=== PATIENT | female | born 1945 | race Caucasian/White ===

== ENCOUNTER → 2017-03-07 | Outpatient (CLI) | payer MEDICARE ==
[~2017-03-07] MED LIST: ALPR-557 PO; ASP325T PO; ASP81CT; ASP81CT PO; BIMA2.5D4 OU; CALC-72; CITA20TA4 PO; CLN.1T PO; CLON1PAT14; CTLP20T; EZET10TA5 PO; FENO135C; FERR-57 PO; GEMF600T3 PO; GLUC10002; LEVO75TA6 PO; LISI20TA; LOSA100T7 PO; LVT.05T; MULT-608 PO; MULT1TAB5 PO; NIA500ERT; NIACOR; OMEG1CAP51; OXYC1TAB PO; losartan; roxicet; xanax
--- NOTE | 2017-03-07 18:22 | Diagnostic Imaging Report ---
Bilateral screening mammogram 2D views with tomosynthesis The current study was also evaluated with a Computer Aided Detection (CAD) system. INDICATION: Screening. No current complaints stated on the questionnaire. COMPARISON: 10/13/2015. FINDINGS: The breasts are composed of scattered fibroglandular densities. Scattered benign-appearing calcifications are seen. Allowing for technique and positional differences, no suspicious change is seen. IMPRESSION: No significant change. ACR BI-RADS Category 2: Benign findings. Result letter will be mailed to the patient. Note: At least 10% of breast cancer is not imaged by mammography. Dictated by: Dictated on workstation # [id number]
== END ==
LOC: RAD 08:49
PROVIDERS: ATTEND Family Medicine
DX: Z12.31 Encounter for screening mammogram for malignant neoplasm of breast (principal)
CPT/HCPCS: 77067

== ENCOUNTER → 2018-03-08 | Outpatient (CLI) | payer MEDICARE | LOC: CARD 10:42 | PROVIDERS: ATTEND Nurse Practitioner Family | DX: I35.0 Nonrheumatic aortic (valve) stenosis (principal); I10 Essential (primary) hypertension; I77.89 Other specified disorders of arteries and arterioles; E78.5 Hyperlipidemia, unspecified | CPT/HCPCS: 93306 ==

== ENCOUNTER 2020-05-17 06:00 | Outpatient (RCR) | payer MEDICARE ==
[~2020-05-17] VITALS: Ht 167.6 cm; Wt 123.9 kg
[~2020-05-17 06:00] MED LIST changes: +ASPI-808 PO; +ASPI-999 PO; +CALC-140 PO; +CITA20TA12 PO; +FERR325T18 PO; +GEMF600T8 PO; +LOSA50TA63 PO; +MULT-1029 PO; +NF-VITD400 PO; +OMG1KC PO; +OXYC-464 PO; +VIT1CAPS5 PO
== END 2020-05-17 14:08 | disposition home or self-care (01) ==
LOC: PREOP 06:00
PROVIDERS: ATTEND Orthopaedic Surgery
DX: Z01.812 Encounter for preprocedural laboratory examination (principal); M20.012 Mallet finger of left finger(s); Z20.822 Contact with and (suspected) exposure to COVID-19
CPT/HCPCS: 87635

== ENCOUNTER 2020-05-19 06:04 | Day surgery (SDC) | payer MEDICARE ==
--- NOTE | 2020-05-12 03:05 | HISTORY AND PHYSICAL ---
DATE OF SERVICE: This will be for outpatient surgery on 05/19/2020 for left long finger pinning. HISTORY OF PRESENT ILLNESS: The patient is a 74-year-old right-hand dominant female who fell approximately 2 weeks ago, she injured her left long finger. She was noted to have a mallet finger of the left long finger. She has tried splinting, but reports she is unable to tolerate this. Because of this, she has elected to proceed with pinning. REVIEW OF SYSTEMS: No chest pain, no shortness of breath, no dysuria. PAST MEDICAL HISTORY: Allergic rhinitis, anxiety disorder, constipation, depression, diabetes, hyperlipidemia, hypertension, hypothyroidism, insomnia and skin cancer. PAST SURGICAL HISTORY: Cataracts, tonsillectomy, skin cancer removal. FAMILY HISTORY: Significant for COPD, ischemic heart disease. PRIMARY CARE PROVIDER: Dr. Allen. MEDICATIONS: Nystatin, citalopram, aspirin, losartan, clonidine, vitamin D, gemfibrozil, Synthroid, Percocet. ALLERGIES: CODEINE, CEPHALEXIN, SIMVASTATIN, NIACIN, GUAIFENESIN. SOCIAL HISTORY: The patient denies alcohol, tobacco use. RADIOGRAPHS: Reveal no acute osseous abnormalities of the long finger. PHYSICAL EXAMINATION: GENERAL: The patient is well-developed, well-nourished, in no acute distress. HEENT: Normocephalic, atraumatic. Pupils are equal, round and reactive to light. Oropharynx is clear. NECK: Supple, no lymphadenopathy. LUNGS: Clear to auscultation bilaterally. HEART: Regular rate and rhythm. ABDOMEN: Soft, nontender, nondistended. EXTREMITIES: The left long finger demonstrates a mallet type deformity. She is unable to actively extend DIP. She has flexion of DIP, MCP and PIP joint with no angulation or malrotation noted. She is tender over the dorsal aspect of her left long finger DIP joint. IMPRESSION: Left long finger mallet injury. PLAN: Left long finger DIP joint pinning. We discussed risks, benefits, options, ramifications and recovery. She understands and wishes to proceed. Job ID: [id number] DocumentID: [id number] Dictated Date: 05/10/2020 15:54:20 Guard Range Date: 05/10/2020 18:20:33 Dictated By: TOREY CAMARENA MD
[2020-05-19] VITALS (10 sets, daily range): BP systolic 108–177; BP diastolic 53–95
[~2020-05-19] VITALS: Ht 167.6 cm; Wt 123.9 kg
[~2020-05-19 06:04] MED LIST changes: -GEMF600T8 PO; +GEMF600T88 PO
[2020-05-19] MEDS ORDERED: LACTATED RINGERS 1,000 ML IV PRN (06:15)
[2020-05-19] MEDS ORDERED: ONDANSETRON 4 MG/2 ML (SDV) Z0FRAN ONE (07:28)
[2020-05-19] MEDS ORDERED: LIDOCAINE PF 2% 5 ML (XYLOCAINE) VIAL ONE (07:28)
[2020-05-19] MEDS ORDERED: proPOfol 200 MG/20 ML (DIPRIVAN) VIAL IV ONE (07:28)
[2020-05-19] MEDS ORDERED: fentaNYL INJECTION 100 MCG/2 ML AMP ONE (07:28)
[2020-05-19] MEDS ORDERED: BUPIVACAINE 0.5% 30 ML (SENSORCAINE) VIAL ONE (07:28)
[2020-05-19] MEDS ORDERED: SEVOFLURANE (ULTANE) 15 ML INHAL SOLN ONE (07:33)
--- NOTE | 2020-05-19 07:33 | Progress Note-Pre Operative ---
Pre-Operative Progress Note H&P Reviewed The H&P was reviewed, patient examined and no changes noted. Date Seen by Provider: May 19, 2020 Time Seen by Provider: 07:20 Date H&P Reviewed: May 19, 2020 Time H&P Reviewed: 07:11 Pre-Operative Diagnosis: left long mallet finger TOREY CAMARENA MD May 19, 2020 07:33
--- NOTE | 2020-05-19 07:34 | Progress Note-Post Operative ---
Post-Operative Progess Note Surgeon (s)/Ticket Printer (s) Surgeon TOREY CAMARENA MD Ticket Printer: Mateus Johnson Pre-Operative Diagnosis left long mallet finger Post-Operative Diagnosis left long mallet finger Procedure & Operative Findings Date of Procedure 05/19/20 Procedure Performed/Findings percutaneous pin fixation of the left long finger DIP joint Anesthesia Type GETA Estimated Blood Loss Estimated blood loss (mL): minimal Specimens/Packing Specimens Removed none Packing: none TOREY CAMARENA MD May 19, 2020 07:34
[2020-05-19] MEDS ORDERED: CLINDAMYCIN 600 MG/4ML (CLEOCIN) VIAL ONE (07:54)
[2020-05-19] MEDS ORDERED: TRM50T PO (09:13)
--- NOTE | 2020-05-19 10:55 | Anesthesia-General Post-Op ---
General Patient Condition Mental Status/LOC: Same as Preop Cardiovascular: Satisfactory Nausea/Vomiting: Absent Respiratory: Satisfactory Pain: Controlled Complications: Absent Post Op Complications Complications None Follow Up Care/Instructions Patient Instructions None needed. Anesthesia/Patient Condition Patient Condition Patient is doing well, no complaints, stable vital signs, no apparent adverse anesthesia problems. No complications reported per nursing. YANG MORELAND CRNA May 19, 2020 10:55
--- NOTE | 2020-05-19 12:35 | Diagnostic Imaging Report ---
INDICATION: Fluoroscopy during percutaneous pinning of left finger. DETAILS OF THE PROCEDURE: Fluoroscopy was provided in the OR. 14 seconds of fluoroscopic time was utilized. Two images were obtained demonstrating a K wire transfixing the distal interphalangeal joint of the 3rd finger. IMPRESSION: Fluoroscopy during left 3rd finger pinning. Dictated by: Dictated on workstation # [id number]
--- NOTE | 2020-05-19 13:26 | OPERATIVE REPORT ---
DATE OF SERVICE: 05/19/2020 PREOPERATIVE DIAGNOSIS: Left long finger mallet finger. POSTOPERATIVE DIAGNOSIS: Left long finger mallet finger. PROCEDURE: Percutaneous pin fixation of left long finger DIP joint. SURGEON: Ankit Camarena MD TELEMETRY RN: Mateus Johnson, who assisted throughout the procedure and applied the dressing. ANESTHESIA: General endotracheal by Leia Gayle CRNA. TOURNIQUET TIME: Not applicable. ESTIMATED BLOOD LOSS: Minimal. DRAINS: None. COMPLICATIONS: None. POSTOPERATIVE PLAN: Pin fixation for 4 to 6 weeks. The patient was transferred to the recovery room awake and stable condition. STATEMENT OF MEDICAL NECESSITY: The patient is a 74-year-old female who sustained an injury resulting in a soft tissue mallet finger of the left long finger DIP joint. She tried splinting, but was unable to tolerate this. The patient was counseled regarding treatment options and elected to proceed with percutaneous pin fixation. She understood that this would not return her joint to the preinjury alignment, but should aid in extensor tendon healing. DESCRIPTION OF PROCEDURE: After risks and benefits of procedure were discussed and questions were answered, an informed consent was signed and placed on chart. The operative site was confirmed in the preoperative holding area initialed by the surgeon. The patient was then transferred to the operating room and after adequate levels of general endotracheal anesthetic were obtained, a timeout was called, confirming the operative site. The left upper extremity was prepped and draped in the usual sterile fashion. Under fluoroscopic guidance, a 0.45 K-wire was passed from distal to proximal across the DIP joint with a joint held in slight hyperextension. This was found to be in excellent position on fluoroscopic visualization. The joint was stable to movement. The pin was cut and the ball was applied. Soft dressing was applied. The patient was transferred to the recovery room awake and in stable condition. Job ID: [id number] DocumentID: [id number] Dictated Date: 05/19/2020 08:22:55 Extractor Puller Date: 05/19/2020 13:25:42 Dictated By: ANKIT CAMARENA MD
== END 2020-05-19 10:10 | disposition home or self-care (01) ==
LOC: SDC 06:04
PROVIDERS: ATTEND Orthopaedic Surgery
DX: M20.012 Mallet finger of left finger(s) (principal); F41.9 Anxiety disorder, unspecified; F32.9 Major depressive disorder, single episode, unspecified; M19.90 Unspecified osteoarthritis, unspecified site; D64.9 Anemia, unspecified; E11.9 Type 2 diabetes mellitus without complications; E78.5 Hyperlipidemia, unspecified; E03.9 Hypothyroidism, unspecified; G47.00 Insomnia, unspecified; I10 Essential (primary) hypertension; J30.9 Allergic rhinitis, unspecified; Z79.899 Other long term (current) drug therapy; Z88.5 Allergy status to narcotic agent; Z88.8 Allergy status to other drugs, medicaments and biological substances
CPT/HCPCS: 26756; 76000; 87081; C1713

== ENCOUNTER → 2021-02-22 | Outpatient (CLI) | payer MEDICARE ==
[~2021-02-22] MED LIST changes: -OXYC-464 PO; +OXYC1TAB15 PO; +TRM50T PO
== END ==
LOC: CARD 10:30
PROVIDERS: ATTEND Internal Medicine Cardiovascular Disease
DX: I08.0 Rheumatic disorders of both mitral and aortic valves (principal)
CPT/HCPCS: 93306

== ENCOUNTER 2021-03-02 10:28 | Outpatient (CLI) | payer MEDICARE ==
[~2021-03-02] VITALS: Ht 167.7 cm; Wt 120.4 kg
[2021-03-02 10:42] VITALS: BP 144/63
[2021-03-02] MEDS ORDERED: diphenhydrAMINE 50 MG/ML INJ (BENADRYL) IV PRN (11:00)
[2021-03-02] MEDS ORDERED: EPINEPHrine INJECTION 1 MG/ML AMP IM PRN (11:00)
[2021-03-02] MEDS ORDERED: ONDANSETRON 4 MG/2 ML (SDV) Z0FRAN IV PRN (11:00)
[2021-03-02] MEDS ORDERED: ACETAMINOPHEN 500 MG TAB (TYLENOL) PO PRN (11:00)
[2021-03-02] MEDS ORDERED: CASIRIVIMAB/IMDEVIMAB 1,200 MG in NS (IVPB) 250 ML IV ONE (11:00)
[2021-03-02 11:53] VITALS: BP 132/36
== END 2021-03-02 12:49 | disposition home or self-care (01) ==
LOC: INFUSION 10:28
PROVIDERS: ATTEND Nurse Practitioner Family
DX: U07.1 COVID-19 (principal)

== ENCOUNTER 2021-11-17 16:45 | Emergency (ER) | payer MEDICARE ==
[~2021-11-17] VITALS: Ht 167.7 cm; Wt 117.5 kg
[2021-11-17] MEDS ORDERED: FLUORESCEIN (FLUOR-I-STRIPS) 1 MG STRP OP ONE (18:00)
[2021-11-17] MEDS ORDERED: TETRACAINE 0.5% OPHTH SOLN 4 ML BTL (SINGLE DOSE ONLY) OP ONE (18:00)
--- NOTE | 2021-11-17 18:54 | ED EENT ---
History of Present Illness General Chief Complaint: Eye Problems Stated Complaint: SCRATCHED R EYE Nursing Triage Note: PT AMBULATE TO ROOM FT1 WITH C/O RIGHT EYE INJURY. PT REPORTS SHE POKED HER RIGHT EYE WITH HER FINGERNAIL. PT'S RIGHT SCLERA IS RED UPON ARRIVAL. PT DENIES PAIN. PT REPORTS BILAT GLAUCOMA STENTS. Source: patient Exam Limitations: no limitations History of Present Illness Date Seen by Provider: Nov 17, 2021 Time Seen by Provider: 18:49 Initial Comments Patient is a 75-year-old female presents ED with right eye injury. She states she poked her right eye this morning with her fingernail. She had some mild pain and discomfort but that started to improve. She noted some redness to the right outer conjunctive. She reports clear drainage. She denies of any visual loss. No significant pain with eye movement. Denies taking thing for pain. Denies fever, nausea vomit, diarrhea. States she has a history of bilateral glaucoma stents. Not currently on eyedrops. Allergies and Home Medications Allergies Coded Allergies: cephalexin (Unverified Allergy, Mild, 05/19/20) codeine (Unverified Allergy, Mild, Pt has rec Percocet in the past, 05/19/20) Wicwdsr-EFT-AzA Reductase Inhibitor (Unverified Allergy, Unknown, 05/19/20) guaifenesin (Unverified Allergy, Unknown, "TUSSIN", 05/19/20) niacin (Verified Allergy, Unknown, 05/19/20) Patient Home Medication List Home Medication List Reviewed: Yes Aspirin (Aspirin) 81 Mg Tab.chew, 81 MG PO DAILY, (Reported) Entered as Reported by: MARIAH FINN on 05/13/20 1246 Calcium Carbonate/Vitamin D3 (Calcium + Vitamin D Tablet) 1 Each Tablet, 1 EACH PO DAILY, (Reported) Entered as Reported by: MARIAH FINN on 05/13/20 1246 Citalopram Hydrobromide (Celexa) 20 Mg Tablet, 20 MG PO DAILY, (Reported) Entered as Reported by: MARIAH FINN on 05/13/20 1249 Clonidine HCl (Clonidine HCl) 0.1 Mg Tablet, 0.1 MG PO BID, (Reported) Entered as Reported by: MARIAH FINN on 05/13/20 1249 Ferrous Sulfate (Ferrous Sulfate) 325 Mg Tablet, 325 MG PO DAILY, (Reported) Entered as Reported by: MARIAH FINN on 05/13/20 1249 Gemfibrozil (Gemfibrozil) 600 Mg Tablet, 600 MG PO DAILY, (Reported) Entered as Reported by: MARIAH FINN on 05/13/20 124 Levothyroxine Sodium (Levothyroxine Sodium) 75 Mcg Tablet, 75 MCG PO DAILY, (Reported) Entered as Reported by: MARIAH FINN on 05/13/20 124 Losartan Potassium (Losartan Potassium) 50 Mg Tablet, 50 MG PO DAILY, (Reported) Entered as Reported by: MARIAH FINN on 05/13/20 124 Multivit-Min/FA/Lycopene/Lut (Centrum Silver Tablet) 1 Each Tablet, 1 EACH PO DAILY, (Reported) Entered as Reported by: MARIAH FINN on 05/13/20 124 [place] 3 Polyunsat Fatty Acids (Fish Oil 1,000 mg Capsule) 1,000 Mg Cap, 1,000 MG PO DAILY, (Reported) Entered as Reported by: MARIAH FINN on 05/13/20 124 Oxycodone HCl/Acetaminophen (Oxycodon-Acetaminophen 7.5-325) 1 Each Tablet, 1 EACH PO Q6H PRN for PAIN-MODERATE, (Reported) Entered as Reported by: MARIAH FINN on 05/13/20 124 Tobramycin (Tobramycin) 0.3 % Drops, 1 DROP OP Q4H Prescribed by: POLO LAGUNA on 11/17/21 1856 Tramadol HCl (Tramadol HCl) 50 Mg Tablet, 50 MG PO Q4H PRN for PAIN-MODERATE (5- 7) Prescribed by: BRUCE LEONE on 05/19/20 0913 Vit A/C/E/Zinc/Co (Preservision Areds Softgel) 1 Cap Capsule, 1 CAP PO DAILY, (Reported) Entered as Reported by: MARIAH FINN on 05/13/20 124 Vitamin D (Vitamin D3) 10 Mcg Tablet, 400 MCG PO DAILY, (Reported) Entered as Reported by: MARIAH FINN on 05/13/20 124 Discontinued Medications Ofloxacin (Ofloxacin) 0.3 % Drops, 1 ML OP QID Prescribed by: OPLO LAGUNA on 11/17/21 295 Review of Systems Review of Systems Constitutional: No chills, No diaphoresis Eyes: Denies Blindness, Denies Blurred Vision, Denies Drainage, Denies Vision Changes; Other (redness right eye) Ears: Denies Dizziness, Denies Pain Nose: denies clots, denies congestion, denies bloody discharge, denies clear discharge Mouth: denies clots, denies loose teeth Throat: denies pain, denies swelling, denies neck stiffness, denies hoarse Respiratory: No cough, No dyspnea on exertion Cardiovascular: No chest pain Gastrointestinal: No abdominal pain, No diarrhea Musculoskeletal: No back pain, No joint pain Skin: No change in color, No change in hair/nails Past Clmhmdk-Virlfo-Knbfaw Hx Patient Social History Tobacco Use?: No Smoking Status: Never a Smoker Smokeless Tobacco Frequency: Never a User Use of E-Cig and/or Vaping dev: No Use of E-Cig and/or Vaping Len: Never a User Substance use?: No Alcohol Use?: No Pt feels they are or have been: No Past Medical History Surgeries: Yes (eye stents) Respiratory: Yes (short of air) Currently Using CPAP: No Currently Using BIPAP: No Cardiac: Yes High Cholesterol Neurological: Yes Neuropathy Reproductive Disorders: No Genitourinary: No Gastrointestinal: No Musculoskeletal: Yes (ARTHRITIS, spinal stenosis) Endocrine: Yes (LOW THYROID) Hypothyroidsim HEENT: Yes (eye stents) Cataract Cancer: Yes Skin Psychosocial: No Anxiety, Depression Integumentary: No Blood Disorders: Yes (anemia) Family Medical History Heart Disease Visual Acuity : Eye Location: Right Vision Acuity Degree: 20/40 Physical Exam Vital Signs Vital Signs - First Documented 11/17/21 17:19 Temp 37.0 Pulse 63 Resp 17 B/P (MAP) 155/79 (104) O2 Delivery Room Air Height, Weight, BMI Height: 5'6.00" Weight: 277lbs. 0.0oz. 125.890838cm; 41.00 BMI Method:Stated General Appearance: WD/WN, no apparent distress Eyes: right eye conjunctival hemorrhage, right eye corneal abrasion; bilateral eye PERRL, bilateral eye EOMI Ears: bilateral ear auricle normal, bilateral ear canal normal, bilateral ear TM normal Nose: normal inspection, active bleeding Mouth/Throat: normal mouth inspection, pharynx normal, dental tenderness Neck: non-tender, full range of motion, supple Cardiovascular: regular rate, rhythm, no edema, no gallop, no JVD Respiratory: chest non-tender, lungs clear, normal breath sounds Gastrointestinal: normal bowel sounds, non tender, soft, no organomegaly Neurologic/Psychiatric: automobile appraiser II-XII nml as tested, no motor/sensory deficits, alert, normal mood/affect, oriented x 3 Skin: normal color, warm/dry Progress/Results/Core Measures Results/Orders My Orders Orders - CANDY RICHARDSON Fluorescein Strips (Meqqv-M-Czrpio) (11/17/21 18:00) Tetracaine 0.5% Ophth Margie Sdv (Tetracai (11/17/21 18:00) Medications Given in ED Current Medications Medications Dose Ordered Sig/Jan Route Start Time Stop Time Status Last Admin Dose Admin Fluorescein Sodium ONCE ONCE OP 11/17/21 18:00 11/17/21 18:01 DC 11/17/21 18:24 1 MG Tetracaine HCl 1 OR 2 DROPS INTO AFFEC... ONCE ONCE OP 11/17/21 18:00 11/17/21 18:01 DC 11/17/21 18:25 4 ML Vital Signs/I&O 11/17/21 17:19 Temp 37.0 Pulse 63 Resp 17 B/P (MAP) 155/79 (104) O2 Delivery Room Air Blood Pressure Mean: 104 Departure Communication (PCP) Patient has a right eye subconjunctival ahemorrhage. Visual acuity right eye 20/40, visual daily left eye 20/20. History of glaucoma with stents. Not currently on eyedrops. She may have a very small corneal abrasion noted with Wood lamp. No evidence of hyphema. Negative Maureen sign. Extraocular movements intact. Pupils reactive light. No foreign body. Will discharge with tobramycin eyedrops. Recommend ophthalmology outpatient follow-up in 2 to 3 days for reevaluation. If any worsening symptoms such as visual loss visual changes to return back to ED. No significant pain at this time. Impression Primary Impression: Subconjunctival hemorrhage Additional Impression: Corneal abrasion Disposition: HOME, SELF-CARE Condition: Stable Departure-Patient Inst. Decision time for Depature: 18:50 Referrals: JESUS DALE MD (PCP/Family) Primary Care Physician Patient Instructions: Subconjunctival Hemorrhage Add. Discharge Instructions: Follow-up with ophthalmology for further evaluation as needed. All discharge instructions reviewed with patient and/or family. Voiced understanding. Scripts Tobramycin (Tobramycin) 0.3 % Drops 1 DROP OP Q4H for 5 Days, #1 DROPS Prov: CANDY RICHARDSON 11/17/21 CANDY RICHARDSON Nov 17, 2021 18:54
[2021-11-17] MEDS ORDERED: OFLO5DRO3 OP (18:56)
[2021-11-17] MEDS ORDERED: TBR.3OP51 OP (18:56)
[2021-11-17 19:08] VITALS: BP 154/84
== END 2021-11-17 19:08 | disposition home or self-care (01) ==
LOC: EDUNIT# 16:45 → ER 16:47
DX: S05.01XA Injury of conjunctiva and corneal abrasion without foreign body, right eye, initial encounter (principal); Z28.310 Unvaccinated for COVID-19; X58.XXXA Exposure to other specified factors, initial encounter
CPT/HCPCS: 99281